=== PATIENT | female | born 1940 | race Two or more races ===

== ENCOUNTER → 2021-06-08 | Day surgery (SDC) | payer OTHER | END | disposition home or self-care (01) | LOC: JRADUS-SUR 12:41 | PROVIDERS: ATTEND Surgery Surgical Oncology | PROC: 0H9U3ZX Drainage of Left Breast, Percutaneous Approach, Diagnostic (ICD-10-PCS; principal; 2021-06-08) | DX: C50.912 Malignant neoplasm of unspecified site of left female breast (principal); Z17.1 Estrogen receptor negative status [ER-] | CPT/HCPCS: 19083; 76641-TC-LT; 76642-TC-LT; 88305-TC; 88342-TC ==

== ENCOUNTER → 2021-08-03 | Day surgery (SDC) | payer OTHER ==
[~2021-08-03] MED LIST: HYALURONIDASE SQ ONE; PERTUZUMAB SQ ONE; TRASTUZUMAB SQ ONE
[2021-08-03 11:13] LABS: BASO % 0.3 % (0-2.0); EOS % 1.2 % (0-4.5); HEMATOCRIT 40.5 % (32.4-45.2); LYMPH % 17.6 % (8-40); MEAN PLT VOLUME 8.4 fl (7.5-11.1); MONO % 6.4 % (3.8-10.2); NEUT % 74.5 % (42.8-82.8); PLATELET COUNT 339 10^3/uL (134-434); RBC 4.18 M/mm3 (3.60-5.2); RDW 16.1 % (11.6-15.6); WHITE BLOOD COUNT 9.7 K/mm3 (4.0-10.0)
[2021-08-03 11:32] LABS: ACTIVATED PTT 35.5 SECONDS (25.2-36.5); INR 1.24 (0.83-1.09); PROTHROMBIN TIME (PATIENT) 14.3 SEC (9.7-13.0)
== END | disposition home or self-care (01) ==
LOC: JONCCHEMO 08:27
PROVIDERS: ATTEND Internal Medicine Hematology & Oncology
DX: Z53.8 Procedure and treatment not carried out for other reasons (principal)
CPT/HCPCS: 36415; 82747; 85014; 85025; 85610; 85730

== ENCOUNTER 2021-08-17 05:04 | Day surgery (SDC) | payer OTHER ==
[2021-08-16 14:02] VITALS: BMI 24.7
[2021-08-17 09:12] LABS: BASO % 0.7 % (0-2.0); EOS % 1.6 % (0-4.5); HEMATOCRIT 39.4 % (32.4-45.2); HEMOGLOBIN 12.8 GM/dL (10.7-15.3); LYMPH % 18.5 % (8-40); MCH 31.1 pg (25.7-33.7); MCHC 32.5 g/dl (32.0-36.0); MEAN CELL VOLUME 95.9 fl (80-96); MEAN PLT VOLUME 9.2 fl (7.5-11.1); MONO % 7.7 % (3.8-10.2); NEUT % 71.5 % (42.8-82.8); PLATELET COUNT 311 10^3/uL (134-434); RBC 4.11 M/mm3 (3.60-5.2); RDW 15.9 % (11.6-15.6); WHITE BLOOD COUNT 8.5 K/mm3 (4.0-10.0)
[2021-08-17 09:44] LABS: ALBUMIN 3.8 g/dl (3.4-5.0); BLOOD UREA NITROGEN 22.4 mg/dL (7-18); CALCIUM 9.1 mg/dL (8.5-10.1)
[2021-08-17 09:47] LABS: CREATININE 0.8 mg/dL (0.55-1.3)
[2021-08-17 09:49] LABS: BILIRUBIN,TOTAL 0.4 mg/dL (0.2-1); TOT PROT 7.5 g/dl (6.4-8.2)
[2021-08-17] MEDS ORDERED: MIDAZOLAM HCL 2 MG/2 ML SINGLE DOSE VIAL ONE (09:56)
[2021-08-17] MEDS ORDERED: TRASTUZUMAB SQ ONE (10:00)
[2021-08-17] MEDS ORDERED: HYALURONIDASE SQ ONE (10:00)
[2021-08-17] MEDS ORDERED: PERTUZUMAB SQ ONE (10:00)
[2021-08-17] MEDS ORDERED: MIDAZOLAM HCL 2 MG/2 ML SINGLE DOSE VIAL IVPUSH ONE ×2 (10:44→11:00)
[2021-08-17] MEDS ORDERED: ACETAMINOPHEN 325 MG TABLET (FP) PO ONE ×2 (13:07→13:30)
[2021-08-17] MEDS ORDERED: diphenhydrAMINE HCL 25 MG CAPSULE (FP) PO ONE (13:08)
[2021-08-17 17:26] VITALS: BP 136/73; PULSE 113; TEMP 97.5
[2021-08-17] MEDS ORDERED: PORTA CATH FLUSH 10 ML IVPUSH PRN (17:32)
== END 2021-08-17 14:35 | disposition home or self-care (01) ==
LOC: JRADIR 05:04
PROVIDERS: ATTEND Internal Medicine Hematology & Oncology
PROC: 0JH63XZ Insertion of Tunneled Vascular Access Device into Chest Subcutaneous Tissue and Fascia, Percutaneous Approach (ICD-10-PCS; principal; 2021-08-17)
PROC: 02HV33Z Insertion of Infusion Device into Superior Vena Cava, Percutaneous Approach (ICD-10-PCS; 2021-08-17)
PROC: 3E01305 Introduction of Other Antineoplastic into Subcutaneous Tissue, Percutaneous Approach (ICD-10-PCS; 2021-08-17)
DX: Z51.11 Encounter for antineoplastic chemotherapy (principal); C50.919 Malignant neoplasm of unspecified site of unspecified female breast
CPT/HCPCS: 36561; 96401; C1788; 36415; 77001-TC-FY; 80053; 85025; J9316

== ENCOUNTER 2021-08-24 06:40 | Day surgery (SDC) | payer OTHER ==
[2021-08-24] MEDS ORDERED: DEXAMETHASONE SODIUM PHOSPHATE 10 MG, DIPHENHYDRAMINE 25 MG in SODIUM CHLORIDE 100 ML IVPB ONE (09:30)
[2021-08-24] MEDS ORDERED: FAMOTIDINE 20 MG/50 ML IVPB 20 MG/50 ML MG IVPB ONE (09:30)
[2021-08-24] MEDS ORDERED: PACLITAXEL 144 MG in SODIUM CHLORIDE 250 ML IVPB ONE (10:00)
[2021-08-24 10:20] LABS: BASO % 0.7 % (0-2.0); EOS % 1.5 % (0-4.5); HEMATOCRIT 37.9 % (32.4-45.2); HEMOGLOBIN 12.2 GM/dL (10.7-15.3); LYMPH % 15.6 % (8-40); MCH 30.9 pg (25.7-33.7); MCHC 32.3 g/dl (32.0-36.0); MEAN CELL VOLUME 95.8 fl (80-96); MEAN PLT VOLUME 8.4 fl (7.5-11.1); MONO % 6.3 % (3.8-10.2); NEUT % 75.9 % (42.8-82.8); PLATELET COUNT 302 10^3/uL (134-434); RBC 3.95 M/mm3 (3.60-5.2); RDW 15.8 % (11.6-15.6); WHITE BLOOD COUNT 8.6 K/mm3 (4.0-10.0)
[2021-08-24 10:48] LABS: ALBUMIN 3.4 g/dl (3.4-5.0); CALCIUM 8.9 mg/dL (8.5-10.1)
[2021-08-24 10:49] LABS: BLOOD UREA NITROGEN 19.4 mg/dL (7-18); MAGNESIUM 2.1 mg/dL (1.8-2.4)
[2021-08-24 10:50] LABS: CREATININE 0.7 mg/dL (0.55-1.3)
[2021-08-24 10:53] LABS: BILIRUBIN,TOTAL 0.4 mg/dL (0.2-1); TOT PROT 6.7 g/dl (6.4-8.2)
[2021-08-24] MEDS ORDERED: ONDANSETRON 4 MG/2 ML VIAL IVPB ONE (11:09)
[2021-08-24] MEDS ORDERED: SODIUM CHLORIDE IVPB ONE (11:30)
[2021-08-24] MEDS ORDERED: PACLITAXEL IVPB ONE (11:30)
[2021-08-24 17:51] VITALS: BP 161/86; PULSE 118; TEMP 98.2
[2021-08-24] MEDS ORDERED: PORTA CATH FLUSH 10 ML IVPUSH PRN (17:51)
== END 2021-08-24 14:30 | disposition home or self-care (01) ==
LOC: JONCCHEMO 06:40
PROVIDERS: ATTEND Internal Medicine Hematology & Oncology
DX: Z51.11 Encounter for antineoplastic chemotherapy (principal); C50.919 Malignant neoplasm of unspecified site of unspecified female breast
CPT/HCPCS: 36415; 80053; 83735; 85025; 96367; 96413

== ENCOUNTER 2021-08-31 07:24 | Day surgery (SDC) | payer OTHER ==
[2021-08-31] MEDS ORDERED: DEXAMETHASONE SODIUM PHOSPHATE 10 MG, DIPHENHYDRAMINE 25 MG in SODIUM CHLORIDE 100 ML IVPB ONE (10:00)
[2021-08-31] MEDS ORDERED: FAMOTIDINE/PF 20 MG in DEXTROSE 5%-WATER - 50 ML IVPB ONE ×2 (10:00→10:45)
[2021-08-31 10:12] LABS: BASO % 0.6 % (0-2.0); EOS % 2.7 % (0-4.5); HEMATOCRIT 32.7 % (32.4-45.2); HEMOGLOBIN 10.9 GM/dL (10.7-15.3); LYMPH % 26.5 % (8-40); MCH 31.6 pg (25.7-33.7); MCHC 33.4 g/dl (32.0-36.0); MEAN CELL VOLUME 94.6 fl (80-96); MEAN PLT VOLUME 8.7 fl (7.5-11.1); MONO % 3.5 % (3.8-10.2); NEUT % 66.7 % (42.8-82.8); PLATELET COUNT 334 10^3/uL (134-434); RBC 3.46 M/mm3 (3.60-5.2); RDW 15.4 % (11.6-15.6); WHITE BLOOD COUNT 6.6 K/mm3 (4.0-10.0)
[2021-08-31] MEDS ORDERED: PACLITAXEL 132 MG in SODIUM CHLORIDE 250 ML IVPB ONE (10:30)
[2021-08-31 10:37] LABS: CALCIUM 9.5 mg/dL (8.5-10.1)
[2021-08-31 10:38] LABS: ALBUMIN 3.3 g/dl (3.4-5.0); BLOOD UREA NITROGEN 30.6 mg/dL (7-18)
[2021-08-31 10:41] LABS: CREATININE 0.8 mg/dL (0.55-1.3)
[2021-08-31 10:43] LABS: BILIRUBIN,TOTAL 0.6 mg/dL (0.2-1); TOT PROT 6.5 g/dl (6.4-8.2)
[2021-08-31 17:17] VITALS: BP 120/68; PULSE 92; TEMP 98
[2021-08-31] MEDS ORDERED: PORTA CATH FLUSH 10 ML IVPUSH PRN (17:17)
== END 2021-08-31 14:00 | disposition home or self-care (01) ==
LOC: JONCCHEMO 07:24
PROVIDERS: ATTEND Internal Medicine Hematology & Oncology
DX: Z51.11 Encounter for antineoplastic chemotherapy (principal); C50.919 Malignant neoplasm of unspecified site of unspecified female breast
CPT/HCPCS: 36415; 80053; 85025; 96367; 96413

== ENCOUNTER 2021-09-07 06:37 | Day surgery (SDC) | payer OTHER ==
[2021-09-07] MEDS ORDERED: DEXAMETHASONE SODIUM PHOSPHATE 10 MG, DIPHENHYDRAMINE 25 MG in SODIUM CHLORIDE 100 ML IVPB ONE (09:30)
[2021-09-07] MEDS ORDERED: FAMOTIDINE/PF 20 MG in DEXTROSE 5%-WATER - 50 ML IVPB ONE (09:30)
[2021-09-07] MEDS ORDERED: HYALURONIDASE SQ ONE (10:00)
[2021-09-07] MEDS ORDERED: PERTUZUMAB SQ ONE (10:00)
[2021-09-07] MEDS ORDERED: TRASTUZUMAB SQ ONE (10:00)
[2021-09-07] MEDS ORDERED: PACLITAXEL 132 MG in SODIUM CHLORIDE 250 ML IVPB ONE (10:15)
[2021-09-07 10:25] LABS: HEMATOCRIT 31.4 % (32.4-45.2); HEMOGLOBIN 10.6 GM/dL (10.7-15.3); MCH 32.2 pg (25.7-33.7); MCHC 33.9 g/dl (32.0-36.0); MEAN PLT VOLUME 8.7 fl (7.5-11.1); PLATELET COUNT 417 10^3/uL (134-434); RBC 3.31 M/mm3 (3.60-5.2); RDW 15.3 % (11.6-15.6); WHITE BLOOD COUNT 5.8 K/mm3 (4.0-10.0)
[2021-09-07 10:55] LABS: CALCIUM 9.3 mg/dL (8.5-10.1)
[2021-09-07 10:56] LABS: ALBUMIN 3.2 g/dl (3.4-5.0); BLOOD UREA NITROGEN 22.7 mg/dL (7-18)
[2021-09-07 10:59] LABS: CREATININE 1.1 mg/dL (0.55-1.3)
[2021-09-07 11:00] LABS: BILIRUBIN,TOTAL 0.3 mg/dL (0.2-1); TOT PROT 6.3 g/dl (6.4-8.2)
[2021-09-07 11:22] LABS: ANISOCYTOSIS 2+; MACROCYTOSIS 0
[2021-09-07 14:11] VITALS: BP 137/63; PULSE 100; TEMP 98.9
[2021-09-07] MEDS ORDERED: PORTA CATH FLUSH 10 ML IVPUSH PRN (14:11)
== END 2021-09-07 14:12 | disposition home or self-care (01) ==
LOC: JONCCHEMO 06:37
PROVIDERS: ATTEND Internal Medicine Hematology & Oncology
DX: Z51.11 Encounter for antineoplastic chemotherapy (principal); C50.911 Malignant neoplasm of unspecified site of right female breast; Z17.0 Estrogen receptor positive status [ER+]
CPT/HCPCS: 36415; 80053; 85025; 96367; 96401; 96413; J9316

== ENCOUNTER → 2021-09-14 | Day surgery (SDC) | payer OTHER ==
[~2021-09-14] MED LIST changes: +DEXAMETHASONE SODIUM PHOSPHATE 4 MG, DIPHENHYDRAMINE 25 MG in SODIUM CHLORIDE 100 ML IVPB ONE; +FAMOTIDINE/PF 20 MG in DEXTROSE 5%-WATER - 50 ML IVPB ONE; -HYALURONIDASE SQ ONE; +PACLITAXEL 126 MG in SODIUM CHLORIDE 250 ML IVPB ONE; -PERTUZUMAB SQ ONE; +PORTA CATH FLUSH 10 ML IVPUSH PRN; +POTASSIUM CHLORIDE TABS 20 MEQ TABLET.ER (FP) PO ONE; -TRASTUZUMAB SQ ONE
[2021-09-14 11:05] LABS: HEMOGLOBIN 10.7 GM/dL (10.7-15.3); MCH 31.3 pg (25.7-33.7); MCHC 32.5 g/dl (32.0-36.0); MEAN CELL VOLUME 96.3 fl (80-96); MEAN PLT VOLUME 8.6 fl (7.5-11.1); PLATELET COUNT 422 10^3/uL (134-434); RBC 3.42 M/mm3 (3.60-5.2); RDW 16.2 % (11.6-15.6); WHITE BLOOD COUNT 8.3 K/mm3 (4.0-10.0)
[2021-09-14 11:21] LABS: CALCIUM 9.1 mg/dL (8.5-10.1)
[2021-09-14 11:22] LABS: ALBUMIN 3.4 g/dl (3.4-5.0); BLOOD UREA NITROGEN 27.9 mg/dL (7-18); MAGNESIUM 2.3 mg/dL (1.8-2.4)
[2021-09-14 11:25] LABS: CREATININE 1.2 mg/dL (0.55-1.3)
[2021-09-14 11:27] LABS: BILIRUBIN,TOTAL 0.3 mg/dL (0.2-1); TOT PROT 6.7 g/dl (6.4-8.2)
[2021-09-14 11:43] LABS: ANISOCYTOSIS 1+; MACROCYTOSIS 0; PLATELET ESTIMATE NORMAL
[2021-09-14 12:50] VITALS: BP 113/61; PULSE 101; TEMP 98.3
== END | disposition home or self-care (01) ==
LOC: JONCCHEMO 07:10
PROVIDERS: ATTEND Internal Medicine Hematology & Oncology
DX: Z51.11 Encounter for antineoplastic chemotherapy (principal); C50.311 Malignant neoplasm of lower-inner quadrant of right female breast; Z17.0 Estrogen receptor positive status [ER+]
CPT/HCPCS: 36415; 80053; 83735; 85025; 96367; 96413